=== PATIENT | female | born 1985 | race Caucasian/White ===

== ENCOUNTER → 2019-06-16 15:18 | Outpatient (CLI) | payer SELFPAY ==
[2019-06-16 14:38] VITALS: BMI 26.7
[2019-06-16 16:26] LABS: Protein:Creat Ratio 173 mg/g CRE (0-200)
== END ==
PROVIDERS: Visit Provider Obstetrics & Gynecology
DX: Z87.59 Personal history of other complications of pregnancy, childbirth and the puerperium (principal)
CPT/HCPCS: 82570; 84156

== ENCOUNTER 2019-07-03 07:25 | Inpatient (IN) | payer SELFPAY ==
[2019-06-29 14:21] VITALS: BMI 26.7
[2019-07-03 08:10] VITALS: BMI 27.1
[2019-07-03] MEDS: Lactated Ringers 1,000 ML 50 ML IV (08:32)
[2019-07-03 08:36] LABS: Absolute Lymphocyte Count 2.21 X10^3/uL (0.83-4.51); Absolute Neutrophil Count 7.7 X10^3/uL (2.0-7.7); Basophil# 0.04 X10^3/uL; Basophil% 0.4 % (0-1); Eosinophil# 0.18 X10^3/uL; Eosinophils% 1.6 % (0-5); Hematocrit 35.5 % (37-47); Hemoglobin 11.8 g/dL (12.0-15.0); Lymphocyte # 2.21 X10^3/ul (4.0); Lymphocyte % 19.8 % (19-41); Mean Corp Hgb Conc 33.2 g/dL (32-36); Mean Corpuscular Hgb 28.9 pg (27.0-32.0); Mean Platelet Vol. 9.4 fl (6.2-12.0); Monocyte# 0.83 X10^3/uL; Monocyte% 7.4 % (0-10); NRBC Flagged by Analyzer 0 % (0-5); Neutrophil # 7.74 X10^3/uL (2.7-7.7); Neutrophil % 69.2 % (47-70); Platelet Count 200 K/mm3 (150-450); RBC Distribution Width SD 43.3 fl (35.1-43.9); Red Blood Count 4.08 M/mm3 (4.2-5.4); White Blood Count 11.2 K/mm3 (4.4-11.0)
[2019-07-03 08:46] LABS: Prothrombin Time (Protime)PT. 13.4 SECONDS (11.7-14.9)
[2019-07-03 08:47] LABS: Partial Thromboplast Time 27.7 Seconds (24.1-36.2)
[2019-07-03] MEDS: Oxytocin 30 units/NS 500 ml 30 UNITS/500 ML IV.SOLN IV (09:35)
[2019-07-03 14:07] LABS: Chlamydia Trachomatis by PCR Negative (Negative); Neisserai gonorrhoeae by PCR Negative (Negative); Probe Check PASS; Sample Adequacy Control PASS; Specimen Processing Control PASS
[2019-07-03] MEDS: Amnioinfusion- 0.9% NS 1,000 ML IV.SOLN. 500 ML INTRA-UTER (17:04)
[2019-07-03] MEDS: Oxytocin 30 units/NS 500 ml 30 UNITS/500 ML IV.SOLN 334 UNITS IV (18:09)
--- NOTE | 2019-07-03 18:26 | HP.PCM_ITS ---
- Problem List (1) AMA (advanced maternal age) multigravida 35+ Status: Acute Qualifiers: Comment: NST; IOL at [address] Sands from [facility] (2) Abnormal ultrasound Status: Acute Comment: US shows short long bones, the differential dx includes skeletal dysplasia. Constitutionally short limbs, FGR and/or aneuploidy (3) Bilateral atelectasis Status: Acute Comment: likely d/t state recommend adding incentive spirometer (4) DVT (deep vein thrombosis) in Status: Acute Comment: LE DVT- neg PE on CT. Currently on Lovenox- needs stopped 24 hours prior to delivery. Then coumadin x6 months after . (5) GBS (group B Streptococcus carrier), +RV culture, currently Status: Acute Comment: Collected on 06/09 at [facility] (6) Hemangioma of liver Status: Acute Comment: 13mm hypervascular focus within hepatic segment (7) History of gestational hypertension Status: Acute Comment: First - delivery at 37 weeks (8) History of hemorrhage, currently Status: Acute Comment: Pitocin given- [facility] records scanned in. (9) Status: Acute Qualifiers: Comment: declines genetic screening (10) Supervision of high risk elderly multigravida in third trimester Status: Acute Comment: KENZIE 07/07/19 has seen trouble operator Saúl Brody [phone] (11) UTI (urinary tract infection) during Status: Acute Qualifiers: Comment: tx w/amoxicillin; neg culture [place] [facility] 06/09/19 History and Physical Date of Admission: 07/03/19 Intake Vital Signs 06/16/19 Height 5 ft 4 in 06/16/19 Weight: 156 lb 06/16/19 Body Mass Index (BMI) 26.7 06/16/19 Blood Pressure 100/60 Intake Visit Reasons: 37 WEEK OB TRANSFER - PER Applications Tester Required: No Accompanied by: Is patient in pain?: No Allergies No Known Allergies Allergy (Verified 06/16/19 14:51) Medications vitamin no.76-iron,carbonyl 29 mg iron-folic acid 1 mg tablet 1 tab PO DAILY 06/15/19 [History Confirmed 06/15/19] heparin (porcine) 20,000 unit/mL injection solution 15,000 unit SC Q8H ml 06/16/19 [History Confirmed 06/16/19] Last Menstral Period: 09/30/18 Zika: Zika virus screening: Negative : No PFSH PFSH Medical History (Updated 06/17/19 @ 04:47 by Amanda Fallon MD) DVT (deep vein thrombosis) in (Acute) Trauma (Acute) Surgical History (Updated 06/16/19 @ 14:53 by Marizol Tristan) No significant past surgical history (Acute) Social History (Updated 06/17/19 @ 04:47 by Amanda Fallon MD) household members: family current occupation: homemaker Smoking Status: Never smoker alcohol intake: never substance use type: does not use yoel/mandaeism: Moose additional social history: - Delgado Pregancy History 7 Elective abortions Hx Para 5 Spontaneous abortions Hx # Term Pregnancies Ectopic pregnancies Hx # Pregnancies Multiple births # of living children 5 Past Pregnancies Del. Date Name GA/Weeks Outcome Route Bth Weight Infant Gen Labor Lgth Anesthesia Del Locatn Provider FOB Unknown 2009- Asher 37 live - full term 3.14 Male [facility] Care [facility] Unknown 2011- Agnieszka 41 live - full term 6.8 [facility] Unknown 2014- Irma 41 live - full term 6.6 Femal e [facility] Unknown 2016- Hai 41 live - full term 6.11 Male [facility] Unknown 2018-- [place] 40 live - full term 7.2 Male home mid wi fe Stephanie Brody Delivery Date: On 06/16/19 @ 14:57 Marizol Tristan induction due to GHTN. Delivery Date: On 06/16/19 @ 14:58 Marizol Tristan no complications Delivery Date: On 06/16/19 @ 14:58 Marizol Tristan no complications Delivery Date: On 06/16/19 @ 15:01 Marizol Tristan patient states that she started bleeding heavily. States that she was given something to stop the bleeding afterwards. Delivery Date: On 06/16/19 @ 15:02 Marizol Tristan no complications HPI 37 WEEK OB TRANSFER - PER SM: Details: LENO SOLIS is a 34 year old who presents for routine OB visit. OB Visit KENZIE Calculator Estimated Delivery Date Method Current WG Current Estimate 07/07/19 Manual 37w 1d noted in [facility] notes. Comments: [phone] saúl brody trouble operator Initial Weight: Not Recorded Date EGA Weight BP Urine Prot Glucose FHR FuHt Pres Mov CTX Dilation Effaced St Visit Note Effaced 06/16/19 37w 0d 156 lb 100/60 Negative Negative 140 38 Active absent no vb lof discussed NATALYA and delivery plan with patient. discussed abnormal us findings. patiet requesting next visit with her trouble operator and then fu for IOL at 39 weeks. Visit Notes Visit Date: 06/16/19 ??no vb lof discussed NATALYA and delivery plan with patient. discussed abnormal us findings. patiet requesting next visit with her trouble operator and then fu for IOL at 39 weeks. ??Amanda Fallon MD on 06/17/19 Diagnostics Diagnostics Details: HIV: Urine Culture: Sequential Screen: NIPT Screen: ROS: General: negative Manager Scheduling: see hpi GI: otherwise negative unless documented in hpi' all other systems reviewed and negative PE: VSSAF General: alert oriented comfortable HEENT: no thyromegaly, lymphadenopathy CV: RRR Resp: nl inspiratory effort Abdn: soft gravid NTTP approrpriate GA Ext: minimal edema Results [id number] Office Urine Glucose Negative Last Edit by Marizol Tristan on 06/16/19 15:54 Office Urine Protein Negative Last Edit by Marizol Tristan on 06/16/19 15:54 Assessment & Plan Problems 1. History of hemorrhage, currently O09.299 Pitocin [facility] records scanned in. 2. History of gestational hypertension Z87.59 First - delivery at 37 weeks 3. Bilateral atelectasis J98.11 likely d/t state recommend adding incentive spirometer 4. Hemangioma of liver D18.03 13mm hypervascular focus within hepatic segment 5. Pulmonary nodule seen on imaging study R91.[address] recommended in 3-6 months; if stable on f/u imaging a repeat chest CT exam in 12 months (15-18 months from initial exam) is recommended. 6. Abnormal ultrasound O28.3 US shows short long bones, the differential dx includes skeletal dysplasia. Constitutionally short limbs, FGR and/or aneuploidy 7. Supervision of high risk elderly multigravida in third trimester O09.523 KENZIE 07/07/19 has seen trouble operator Saúl Brody [phone] 8. Z34.90 declines genetic screening 9. AMA (advanced maternal age) multigravida 35+ O09.529 NST; IOL at [address] Sands from [facility] 10. UTI (urinary tract infection) during O23.40 tx w/amoxicillin 11. DVT (deep vein thrombosis) in O22.30 LE DVT- neg PE on CT. Currently on Lovenox- needs stopped 24 hours prior to delivery. Then coumadin x6 months after . 12. GBS (group B Streptococcus carrier), +RV culture, currently O99.820 Collected on 06/09 at [facility] pitocin IOL gbs pos- PCN movement and labor precautions reviewed. ACOG trimester education reviewed and updated. see problem list details for updated plan management information and see below for orders placed at this visit. GA appropriate handout given. Orders Orders: POC Urinalysis 2 Dip (Clinic) 06/16/19 Coding Level of Care Code OB Routine Diagnoses History of hemorrhage, currently O09.299 History of gestational hypertension Z87.59 Bilateral atelectasis J98.11 Hemangioma of liver D18.03 Pulmonary nodule seen on imaging study R91.1 Abnormal ultrasound O28.3 Supervision of high risk elderly multigravida in third trimester O09.523 Z34.90 AMA (advanced maternal age) multigravida 35+ O09.529 UTI (urinary tract infection) during O23.40 DVT (deep vein thrombosis) in O22.30 GBS (group B Streptococcus carrier), +RV culture, currently O99.820 UPDATE- I have seen the patient and performed any clinically relevant updates to the history and physical exam. Amanda Fallon MD
--- NOTE | 2019-07-03 18:39 | PCM.OPRPT ---
Problem List (1) AMA (advanced maternal age) multigravida 35+ Status: Acute Qualifiers: Comment: NST; IOL at [address] Sands from [facility] (2) Abnormal ultrasound Status: Acute Comment: US shows short long bones, the differential dx includes skeletal dysplasia. Constitutionally short limbs, FGR and/or aneuploidy (3) Bilateral atelectasis Status: Acute Comment: likely d/t state recommend adding incentive spirometer (4) DVT (deep vein thrombosis) in Status: Acute Comment: LE DVT- neg PE on CT. Currently on Lovenox- needs stopped 24 hours prior to delivery. Then coumadin x6 months after . (5) GBS (group B Streptococcus carrier), +RV culture, currently Status: Acute Comment: Collected on 06/09 at [facility] (6) Hemangioma of liver Status: Acute Comment: 13mm hypervascular focus within hepatic segment (7) History of gestational hypertension Status: Acute Comment: First - delivery at 37 weeks (8) History of hemorrhage, currently Status: Acute Comment: Pitocin given- [facility] records scanned in. (9) Status: Acute Qualifiers: Comment: declines genetic screening (10) Supervision of high risk elderly multigravida in third trimester Status: Acute Comment: KENZIE 07/07/19 has seen salvage inspector Brisa Brody [phone] (11) UTI (urinary tract infection) during Status: Acute Qualifiers: Comment: tx w/amoxicillin; neg culture [place] Gen 06/09/19 Vaginal Delivery Maternal Presentation: Medically Indicated Induction iol recent dvt Method of Induction: Pitocin Medical Reason for Induction: - - recent dvt on blood thinners Amniotic Membrane Rupture Type: Artificial Amniotic Fluid Description: Clear Final KENZIE: 07/08/19 Gestational age: 39 Weeks and 2 Days Date of Procedure: 07/03/19 Pre-Operative Diagnosis: recent dvt, hand presentation prior to delivery Post-Operative Diagnosis: same plus cephalic at time of delivery Surgery/ Procedure Performed: Spontaneous Vaginal Delivery Type of Anesthesia: None Description of Procedure: Patient was checked and was noted to be 5 cm and there was extension of the hand in front of the head and therefore the patient was counseled regarding possible primary . Position changes were employed and patient started to feel pressure and then was noted to be completely dilated in the hand presentation had almost completely resolved spontaneously. Patient began pushing and delivered the head in the JAISON presentation. The head was delivered atraumatically and a loose nuchal cord ?1 was identified and easily reduced over the infant's head. The anterior and posterior shoulders delivered without complication followed by the rest of the infant and the infant was placed on the maternal abdomen. Delayed cord clamping was employed for approximately 60 seconds. Cord was clamped and cut and gentle traction was applied to the cord and the placenta delivered spontaneously immediately following it was noted to be intact with three-vessel cord. The perineum and vagina were inspected and noted to have no laceration. EBL was 50 cc. Patient and infant tolerated delivery well. Presentation: JAISON Placental Delivery Description: Spontaneous Placenta Disposition: [facility] Cord Vessel Description: 3 Vessels Cord Entanglement: Around neck x 1, loose Estimated Blood Loss: 50 Infant A gender: Female Episiotomy Description: None Laceration: None Medications given after delivery: IV Pitocin Complications: None
[2019-07-03 20:15] VITALS: BP 119/82; PULSE 94; RESP 16; TEMP 37.4
[2019-07-03] MEDS: 0.9% Saline Lock 10 ML Syringe IV (21:00)
[2019-07-04 00:32] VITALS: BP 108/66; PULSE 84; RESP 16; TEMP 36.5
[2019-07-04] MEDS: Enoxaparin 80 MG/0.8 ML Syringe 70 MG SC ×2 (00:35→13:50)
[2019-07-04 03:56] VITALS: BP 101/63; PULSE 71; RESP 16; TEMP 36.6
[2019-07-04 05:05] LABS: Hematocrit 35.1 % (37-47); Hemoglobin 11.8 g/dL (12.0-15.0); Mean Corp Hgb Conc 33.6 g/dL (32-36); Mean Corpuscular Hgb 29.4 pg (27.0-32.0); Mean Corpuscular Volume 87.3 fL (81-99); Mean Platelet Vol. 9.4 fl (6.2-12.0); Platelet Count 155 K/mm3 (150-450); RBC Distribution Width CV 13.9 % (11.6-14.6); RBC Distribution Width SD 44.1 fl (35.1-43.9); Red Blood Count 4.02 M/mm3 (4.2-5.4)
[2019-07-04 05:10] LABS: International Normalized Ratio 1.1; Prothrombin Time (Protime)PT. 13.5 SECONDS (11.7-14.9)
--- NOTE | 2019-07-04 08:08 | PN.OBGYN_ITS ---
Subjective: doing well no complaints pain controlled no CP SOB N V ambulating well tolerating po lochia moderate, some difficulty with . Not holding infant much. Grandmother states baby won't latch, also baby had episode of choking threw up alot of mucous and turned blue. They did not call nurse, baby pink, sleeping at present. No iss ues with breathing. - Physical Exam General: Alert, Cooperative, - - Answers questions appropriately but lack of affect Abdomen: Soft, Non Tender, Non-Distended, - - FF below U Vital Signs Temp Pulse Resp BP 97.8 F 71 16 101/63 07/04/19 03:56 07/04/19 03:56 07/04/19 03:56 07/04/19 03:56 Oxygen Delivery Method Room Air Weight: 157 lb 13.616 oz Body Mass Index (BMI) 27.1 Intake and Output for Last 24 Hours 07/02/19 07/03/19 07/04/19 23:59 23:59 23:59 Intake Total 1769.5 / 1769.5 Output Total 1450 / 1450 Balance 319.5 / 319.5 Laboratory Tests Past 24 Hrs 07/03/19 07/03/19 07/03/19 08:25 08:25 08:25 WBC 11.2 H RBC 4.08 L Hgb 11.8 L Hct 35.5 L MCV 87.0 MCH 28.9 MCHC 33.2 RDW Std Deviation 43.3 RDW Coeff of Zoila 14.0 Plt Count 200 MPV 9.4 Immature Gran % (Auto) 1.600 H Neut % (Auto) 69.2 Lymph % (Auto) 19.8 [place] % (Auto) 7.4 Eos % (Auto) 1.6 Baso % (Auto) 0.4 Absolute Neuts (auto) 7.7 Absolute Lymphs (auto) 2.21 Nucleated RBC % 0 PT 13.4 INR 1.0 APTT 27.7 Chlam trachomat DNA PCR N.gonorrhoeae DNA (PCR) Blood Type A POSITIVE Antibody Screen NEGATIVE 07/03/19 07/04/19 07/04/19 10:47 04:56 04:56 WBC 15.0 H RBC 4.02 L Hgb 11.8 L Hct 35.1 L MCV 87.3 MCH 29.4 MCHC 33.6 RDW Std Deviation 44.1 H RDW Coeff of Zoila 13.9 Plt Count 155 MPV 9.4 Immature Gran % (Auto) Neut % (Auto) Lymph % (Auto) [place] % (Auto) Eos % (Auto) Baso % (Auto) Absolute Neuts (auto) Absolute Lymphs (auto) Nucleated RBC % PT 13.5 INR 1.1 APTT Chlam trachomat DNA PCR Negative N.gonorrhoeae DNA (PCR) Negative Blood Type Antibody Screen Medical Necessity - Tobacco Use Smoking Status: Never smoker Assessment/Plan All Active Problems (Last Reviewed 06/29/19 @ 14:20 by Yoly Dhaliwal) History of hemorrhage, currently (Acute) History of gestational hypertension (Acute) Bilateral atelectasis (Acute) Hemangioma of liver (Acute) Pulmonary nodule seen on imaging study (Acute) Abnormal ultrasound (Acute) Supervision of high risk elderly multigravida in third trimester (Acute) (Acute) AMA (advanced maternal age) multigravida 35+ (Acute) UTI (urinary tract infection) during (Acute) DVT (deep vein thrombosis) in (Acute) GBS (group B Streptococcus carrier), +RV culture, currently (Acute) s/p PPD # 1 1. routine post delivery care 2. breast feeding- support given: to see patient today. Considering bottlefeeding so family can assist. 3. rh positive 4. rubella immune 5. Social work consult will be done today per drapery head former. 6. Patient/ eager to go home this pm. Will be determined by baby's eating today 7. Lovenox at present, change to coumadin 5mg daily and needs labs in 1 week
[2019-07-04 08:30] VITALS: BP 107/68; PULSE 75; RESP 16; TEMP 36.2
--- NOTE | 2019-07-04 10:05 | DCINST_ITS ---
Discharge Diet: No Restrictions Discharge Activity: Return to Normal Activity, May not drive while taking narcotic pain medications., May Shower May resume sexual activity in: 4-6 weeks Call your doctor if your incision/area has: Continuous Slow Oozing, Sudden Increased Bleeding, Increased Pain/ Swelling, Increased Redness, Foul Smelling Discharge Additional Instructions: If you experience any of the following, contact your healthcare provider. * Bleeding that soaks a pad every hour for 2 hours * Fever 100.4 or higher * Unrelieved incision or abdominal pain * Swelling, redness, discharge or bleeding from your incision or episiotomy site * Your incision begins to separate * Problems urinating (including inability to urinate or burning while urinating). * Visual changes * Severe headache * Flu-like symptoms * Pain or redness in one of both of your breasts * Pain, warmth, tenderness or swelling in your legs, especially the calf area * Frequent nausea and vomiting * Symptoms of depression or anxiety If you experience any of the following, call 911 or go to the nearest Emergency Room. * Chest pain * Problems breathing * Seizure activity * Partial or complete paralysis of a body part, slurred speech, weakness or drooping of the face, or a sudden inability to walk or hold your balance Allergies/Adverse Reactions: Allergies No Known Allergies Allergy (Verified 06/29/19 14:19) Medications to take at Discharge vitamin no.76-iron,carbonyl 29 mg iron-folic acid 1 mg tablet 1 tab PO DAILY 06/15/19 Enoxaparin [Lovenox] 70 mg SUBCUT Q12 syringe 07/04/19 Warfarin Sodium [Coumadin] 5 mg PO DAILY #7 tab 07/04/19 The following prescriptions were given: Warfarin Sodium [Coumadin] 5 mg PO DAILY #7 tab Transmission Status: Received by [facility] #27 Please Follow Up With: Amanda Fallon MD - [phone] When: Call to make an appointment with your doctor in 6 weeks. If you had elevated Blood pressure or 4th degree laceration you will need to be seen in 2 weeks. When: with primary care 2-3 days after delivery to be continued on coumadin Test Results: Test results from this visit will be discussed in further detail at your follow- up appointment, if applicable.
--- NOTE | 2019-07-04 10:05 | PCM.DCVAG ---
Discharge Diet: No Restrictions Discharge Activity: Return to Normal Activity, May not drive while taking narcotic pain medications., May Shower May resume sexual activity in: 4-6 weeks Call your doctor if your incision/area has: Continuous Slow Oozing, Sudden Increased Bleeding, Increased Pain/ Swelling, Increased Redness, Foul Smelling Discharge Additional Instructions: If you experience any of the following, contact your healthcare provider. Bleeding that soaks a pad every hour for 2 hours Fever 100.4 or higher Unrelieved incision or abdominal pain Swelling, redness, discharge or bleeding from your incision or episiotomy site Your incision begins to separate Problems urinating (including inability to urinate or burning while urinating). Visual changes Severe headache Flu-like symptoms Pain or redness in one of both of your breasts Pain, warmth, tenderness or swelling in your legs, especially the calf area Frequent nausea and vomiting Symptoms of depression or anxiety If you experience any of the following, call 911 or go to the nearest Emergency Room. Chest pain Problems breathing Seizure activity Partial or complete paralysis of a body part, slurred speech, weakness or drooping of the face, or a sudden inability to walk or hold your balance Allergies/Adverse Reactions: Allergies No Known Allergies Allergy (Verified 06/29/19 14:19) Medications to take at Discharge vitamin no.76-iron,carbonyl 29 mg iron-folic acid 1 mg tablet 1 tab PO DAILY 06/15/19 Enoxaparin [Lovenox] 70 mg SUBCUT Q12 syringe 07/04/19 Warfarin Sodium [Coumadin] 5 mg PO DAILY #7 tab 07/04/19 The following prescriptions were given: Warfarin Sodium [Coumadin] 5 mg PO DAILY #7 tab Transmission Status: Received by [facility] #27 Please Follow Up With: Amanda Fallon MD - [phone] When: Call to make an appointment with your doctor in 6 weeks. If you had elevated Blood pressure or 4th degree laceration you will need to be seen in 2 weeks. When: with primary care 2-3 days after delivery to be continued on coumadin Test Results: Test results from this visit will be discussed in further detail at your follow-up appointment, if applicable.
[2019-07-04 12:00] VITALS: BP 107/75; PULSE 75; RESP 16; TEMP 36.3
--- NOTE | 2019-07-04 16:00 | CASEMGMT ---
Social Work Brief Assessment - Labor and Delivery Unit Patient Address:[address] [place] [id number] Phone number: [phone] message line Date of Referral/Notification: 07/03/2019; 07/04/2019 Time of Referral: 1015; 1330 Referred By: Dr. Fallon Reason for Referral: discharge planning; parents unsure if the car seat at home is an infant car seat or if the family's frontload driver has a car seat. Date of Intervention: 07/04/2019 Time of Intervention: 1600 Informant: Medical record, mother of baby (MOB) Mariajose Ko, and father of baby (FOB) Delgado Ko History: FIORELLA is a 34 year old female from the [facility]. MOB delivered 6th child during this admission, a baby named Sia. MOB is G7, P5 to 6 after delivering Sia. care with Dr. Fallon started at 37 weeks gestation, transfer of care from a local conversion man Stephanie Brody. FIORELLA has had 3 deliveries at the [facility], a delivery at [facility] in [place], and then a home delivery. Children include: Alban (born 2010), Agnieszka (born 2012), Irma (born 2014), Hai (born 2016), Hunt (born 2018) and Sia (born 07.03.2020, weighing 5 pounds 9 ounces, Apgars 9 and 9 at 1 an 5 minutes of life). MOB and FOB plan to use Stephanie Brody for pediatric follow up. MOB will have a helper, a niece, for about 6 weeks at home. 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 MOB denies any history of blues or depression. MOB with an 8th grade educations, as is the norm for the [facility] community. Upon admission, MOB denies any form of abuse or safety concerns at this time. Assessment: Met with MOB. Also in the room was MOB's mother and FOB's mother. FOB initially sleeping on couch but woke up as this sports book writer was talking to MOB. Upon waking up, the FOB did participate in conversation and MOB deferred to FOB for some answers, such as the issue of the car seat at home. MOB with quiet and constricted demeanor and affect, but did smile at times. MOB held normal eye contact. MOB reports to feel okay to go home this evening and indicates that would like to be in comfort of own home, especially considering that that initially hoped to deliver at home this . Addressed with MOB and FOB the issue of supplies. MOB and FOB reports to have needed supplies to care for baby at home, but the questions is whether the family has a car seat. Educated parents that baby cannot be discharged without a car seat, and that this needs to be figured out prior to home going. FOB talked of having a car seat at home but not bringing into the hospital, that no one can go to get it, and uncertain whether for an or not. FOB voiced belief that one of the drivers the family uses will have a car seat. Educated FOB that if the family cannot obtain a car seat to use, then the only options are to go an buy a new one or to see if there are any agencies in the community to help out. Educated that there are sometimes agencies to help, but usually a process to access. FOB voiced wonder if he should start working on a ride and a car seat for baby. This sports book writer agreed that would be a spicer choice to start this work.. Educated MOB and FOB that if cannot get the car seat or a ride this evening yet, then staying the night again would be allowable based on delivery time, as well as the package najera that the family is paying for. This write present in the room while FOB called several drivers. MOB's' mother voiced that there is a car seat at their house, for an , if someone could go to get this. FOB also asked if the hospital has a car seat to borrow. Educated that the hospital does not provide car seats, even to borrow. FOB voiced that feels will be able to get a drive to bring a car seat, but if not then will agree to stay the night until someone can go and get a car seat tomorrow. No other needs requested at this time. FOB voiced thanks for social work visit and talking through discharge needs for baby. MOB accepted some information on depression. This sports book writer gently educated that many women experience symptoms and that it is okay to let healthcare providers know for support. MOB reports to have support from family locally as well, and does plan to follow up with Dr. Fallon in 6 weeks. Plan: MOB and baby to home when medically ready. depression packet given. No agency referrals as this is not typically accepted by the [facility], as well as the FOB is actively working on getting a ride and car seat for discharge. No further needs requested or indicated, but should the ride and car seat fall through today, can see the family again tomorrow morning. Updated nursing. -ANNITA Wong, PLASTICS FABRICATION SUPERVISOR
[2019-07-04 16:30] VITALS: BP 111/72; PULSE 80; RESP 16; TEMP 35.9
== END 2019-07-04 19:10 | disposition home or self-care (01) | DRG 806 ==
PROVIDERS: Admitting Provider Obstetrics & Gynecology; Referring Provider Obstetrics & Gynecology; Visit Provider Obstetrics & Gynecology
DX: O87.1 Deep phlebothrombosis in the puerperium (principal); I82.409 Acute embolism and thrombosis of unspecified deep veins of unspecified lower extremity; J98.11 Atelectasis; O99.824 Streptococcus B carrier state complicating childbirth; D18.03 Hemangioma of intra-abdominal structures; O69.81X0 Labor and delivery complicated by cord around neck, without compression, not applicable or unspecified; O32.2XX0 Maternal care for transverse and oblique lie, not applicable or unspecified; Z79.01 Long term (current) use of anticoagulants; Z37.0 Single live birth; Z3A.39 39 weeks gestation of pregnancy
CPT/HCPCS: 59025; 59050; 85025; 85027; 85610; 85730; 86850; 86900; 86901; 87491; 87591; 99218; J7030; J7120; A4216; G0378; J2405